=== PATIENT | female | born 1975 ===

== ENCOUNTER 2021-04-28 15:19 | Outpatient (REF) | payer OTHER, SELFPAY ==
--- NOTE | ~2021-04-28 | MM_ITS ---
EXAMINATION: MM SCREENING DIGITAL BREAST TOMOSYNTHESIS, BILATERAL CLINICAL INFORMATION: Screening. Asymptomatic. The lifetime risk of breast cancer based on the Tyrer-Cuzick Model is 11%. COMPARISON: Mammography: 08/31/2019, 08/24/2018 TECHNIQUE: Digital breast tomosynthesis is performed in both the craniocaudal and mediolateral oblique views along with computer-aided detection (CAD). Synthesized 2D images are generated from the tomosynthesis. Additional exaggerated left CC view is provided. FINDINGS: The breasts are heterogeneously dense, which may obscure small masses (ACR BI-RADS breast composition Category c). Breast tissue composition borders on extremely dense. Parenchymal pattern is similar to prior studies. There is no architectural abnormality or developing density. The axilla and skin contours are unremarkable. MM/MM tomosynthesis screening BI IMPRESSION: No mammographic evidence of malignancy. ASSESSMENT: BI-RADS 1: Negative RECOMMENDATION: Routine annual mammography screening. This patient's information was entered into a reminder system with a target due date for their next mammogram.
== END 2021-04-28 15:20 | disposition home or self-care (01) ==
LOC: HO.MAMMO 15:19
PROVIDERS: Visit Provider Internal Medicine
DX: Z12.31 Encounter for screening mammogram for malignant neoplasm of breast (principal)
CPT/HCPCS: 77063; 77067

== ENCOUNTER 2021-10-15 08:53 | Outpatient (REF) | payer OTHER, SELFPAY | END 2021-10-15 08:54 | disposition home or self-care (01) | LOC: HO.LAB 08:53 | PROVIDERS: Visit Provider Internal Medicine | DX: Z13.89 Encounter for screening for other disorder (principal) ==

== ENCOUNTER 2022-12-02 12:37 | Outpatient (REF) | payer OTHER, SELFPAY ==
--- NOTE | ~2022-12-02 | MM_ITS ---
EXAMINATION: MM SCREENING DIGITAL BREAST TOMOSYNTHESIS, BILATERAL CLINICAL INFORMATION: Screening. Asymptomatic. The lifetime risk of breast cancer based on the Tyrer-Cuzick Model is 10%. COMPARISON: Mammography: 04/28/2021, 08/31/2019, 08/24/2018 TECHNIQUE: Digital breast tomosynthesis is performed in both the craniocaudal and mediolateral oblique views along with computer-aided detection (CAD). Synthesized 2D images are generated from the tomosynthesis. FINDINGS: The breasts are heterogeneously dense, which may obscure small masses (ACR BI-RADS breast composition Category c). There are no significant masses, abnormal calcifications, or other abnormalities. No architectural abnormality or developing density or significant change from prior studies. The axilla and skin contours are unremarkable. MM/MM tomosynthesis screening BI IMPRESSION: No mammographic evidence of malignancy. ASSESSMENT: BI-RADS 1: Negative RECOMMENDATION: Routine annual mammography screening. This patient's information was entered into a reminder system with a target due date for their next mammogram.
== END 2022-12-02 12:38 | disposition home or self-care (01) ==
LOC: HO.MAMMO 12:37
PROVIDERS: PCP Internal Medicine; Visit Provider Internal Medicine
DX: Z12.31 Encounter for screening mammogram for malignant neoplasm of breast (principal)
CPT/HCPCS: 77063; 77067

== ENCOUNTER 2022-12-04 09:46 | Outpatient (REF) | payer OTHER, SELFPAY ==
[2022-12-04 09:58] LABS: MANUAL DIFF FLAG NO
[2022-12-04 10:08] LABS: Basophils Percent Auto 0.5 % (0-2); Eosinophils Absolute Auto 0.1 X10*3/uL (0.0-0.4); Eosinophils Percent Auto 2.8 % (0-4); Hematocrit 38.5 % (37.0-47.0); Hemoglobin 12.3 g/dl (12.0-16.0); Imm Gran Abs Auto 0.01 X10*3/uL (0.00-0.03); Imm Gran Pct Auto 0.2 % (0.0-0.4); Lymphocytes Absolute Auto 1.5 X10*3/uL (1.2-4.9); Lymphocytes Percent Auto 35.4 % (20-40); Mean Corpuscular HGB Conc 31.9 g/dl (31.0-35.0); Mean Corpuscular Hemoglobin 24.8 pg (27.0-33.0); Mean Corpuscular Volume 77.8 fL (80.0-98.0); Mean Platelet Volume 10.3 fL (9.4-12.3); Monocytes Absolute Auto 0.4 X10*3/uL (0.1-1.2); Monocytes Percent Auto 9.4 % (2-11); Neutrophils Absolute Auto 2.3 x10*3/uL (2.0-8.3); Neutrophils Percent Auto 51.7 % (45-73); Platelet Count 204 X10*3/uL (160-400); Red Blood Count 4.95 X10*6/uL (4.20-5.50); White Blood Count 4.4 X10*3/uL (4.8-10.8)
[2022-12-04 10:29] LABS: Alanine Aminotransferase 29 U/L (0-31); Albumin Level 4.2 g/dL (3.5-5.0); Alkaline Phosphatase 81 U/L (39-117); Anion Gap 12 (12-20); Aspartate Amino Transferase 25 U/L (5-31); Bilirubin Total 1.2 mg/dL (0.0-1.0); Blood Urea Nitrogen 9 mg/dL (9-16); Calcium 9.3 mg/dL (8.4-10.2); Carbon Dioxide 25 mmol/L (22-29); Chloride 105 mmol/L (96-108); Cholesterol 139 mg/dL; Estimated Glomerular Filt Rate > 60; Glucose Random 92 mg/dL (60-115); HDL Cholesterol 39 mg/dL; LDL Cholesterol Calculated 92 mg/dl; Potassium 4.2 mmol/L (3.3-5.1); Sodium 138 mmol/L (135-145); Total Protein 6.9 g/dL (6.5-8.0); Triglycerides 43 mg/dL
== END 2022-12-04 09:47 | disposition home or self-care (01) ==
LOC: HO.LAB 09:46
PROVIDERS: PCP Internal Medicine; Visit Provider Internal Medicine
DX: Z00.00 Encounter for general adult medical examination without abnormal findings (principal); Z13.31 Encounter for screening for depression
CPT/HCPCS: 36415; 80053; 80061; 85025

== ENCOUNTER 2024-02-07 07:29 | Outpatient (REF) | payer OTHER, SELFPAY | END 2024-02-07 07:30 | disposition home or self-care (01) | LOC: HO.MAMMO 07:29 | PROVIDERS: PCP Internal Medicine; Visit Provider Internal Medicine | DX: Z12.31 Encounter for screening mammogram for malignant neoplasm of breast (principal) | CPT/HCPCS: 77063; 77067 ==

== ENCOUNTER → 2024-02-07 07:45 | Outpatient (BNV) | payer OTHER, SELFPAY | PROVIDERS: PCP Internal Medicine; Visit Provider Radiology Diagnostic Radiology | DX: Z12.31 Encounter for screening mammogram for malignant neoplasm of breast (principal) | CPT/HCPCS: 77063; 77067 ==

== ENCOUNTER 2024-02-20 09:13 | Outpatient (REF) | payer OTHER, SELFPAY ==
[2024-02-20 09:25] LABS: MANUAL DIFF FLAG NO
[2024-02-20 09:51] LABS: Basophils Percent Auto 0.5 % (0-2); Eosinophils Absolute Auto 0.1 X10*3/uL (0.0-0.4); Eosinophils Percent Auto 1.7 % (0-4); Hematocrit 36.2 % (37.0-47.0); Hemoglobin 11.7 g/dl (12.0-16.0); Imm Gran Abs Auto 0.01 X10*3/uL (0.00-0.03); Imm Gran Pct Auto 0.2 % (0.0-0.4); Lymphocytes Absolute Auto 1.5 X10*3/uL (1.2-4.9); Lymphocytes Percent Auto 35.1 % (20-40); Mean Corpuscular HGB Conc 32.3 g/dl (31.0-35.0); Mean Corpuscular Hemoglobin 25.2 pg (27.0-33.0); Mean Platelet Volume 10.7 fL (9.4-12.3); Monocytes Absolute Auto 0.4 X10*3/uL (0.1-1.2); Monocytes Percent Auto 8.4 % (2-11); Neutrophils Absolute Auto 2.3 x10*3/uL (2.0-8.3); Neutrophils Percent Auto 54.1 % (45-73); Platelet Count 240 X10*3/uL (160-400); Red Blood Count 4.64 X10*6/uL (4.20-5.50); Red Cell Distribution Width 14.5 % (11.0-16.0); White Blood Count 4.2 X10*3/uL (4.8-10.8)
[2024-02-20 10:35] LABS: Alanine Aminotransferase 22 U/L (0-31); Albumin Level 4.3 g/dL (3.5-5.0); Alkaline Phosphatase 71 U/L (39-117); Anion Gap 11 (12-20); Aspartate Amino Transferase 24 U/L (5-31); Bilirubin Total 0.6 mg/dL (0.0-1.0); Blood Urea Nitrogen 8 mg/dL (9-16); Calcium 9.4 mg/dL (8.4-10.2); Carbon Dioxide 25 mmol/L (22-29); Chloride 108 mmol/L (96-108); Cholesterol 134 mg/dL (<200); Estimated Glomerular Filt Rate > 60; Glucose Random 105 mg/dL (60-115); HDL Cholesterol 46 mg/dL (>40); LDL Cholesterol Calculated 81 mg/dL (<100); Potassium 4.1 mmol/L (3.3-5.1); Sodium 140 mmol/L (135-145); Total Protein 7.2 g/dL (6.5-8.0); Triglycerides 39 mg/dL (<150)
[2024-02-20 10:51] LABS: TSH reflex Free T4 1.88 uIU/mL (0.32-4.0)
== END 2024-02-20 09:14 | disposition home or self-care (01) ==
LOC: HO.LAB 09:13
PROVIDERS: PCP Internal Medicine; Visit Provider Internal Medicine
DX: Z00.00 Encounter for general adult medical examination without abnormal findings (principal); I10 Essential (primary) hypertension; R00.0 Tachycardia, unspecified; R63.4 Abnormal weight loss
CPT/HCPCS: 36415; 80053; 80061; 84443; 85025

== ENCOUNTER 2024-03-22 08:31 | Outpatient (AMB) | payer OTHER, SELFPAY ==
--- NOTE | 2024-03-22 08:41 | A.OFFVIS_ITS ---
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 Apparently, heart rate runs high whenever she comes to doctor's offices but otherwise normal. Today, her heart rate is 138/Min but she states it is because of extreme anxiety coming to us. Apparently every time she goes to a physician her heart rate goes up but then returned back to normal. Patient herself does not have any cardiac history. She denies any symptoms like angina or shortness of breath or palpitations or in fact anything of that nature. Unlimited exercise tolerance. [facility] Family History Father No problems noted. Mother No problems noted. Social History (Updated 03/22/24 @ 08:45 by Citlali Li CMA) Household Members: Significant Other and Family Alcohol intake: never Patient Tobacco Use Status: Never used Tobacco Review of Systems Const Denies chills, Denies fatigue, Denies fever(s), Denies frequent falls, Denies weakness, Denies weight gain and Denies weight loss ENT Denies dizziness Card Denies chest pain, Denies leg edema, Denies lightheadedness, Denies palpitations, Denies dyspnea, Denies dyspnea on exertion and Denies orthopnea Resp Denies cough, Denies dyspnea and Denies dyspnea on exertion GI Denies bloating and Denies change in bowel habits Musc Denies muscle weakness, Denies numbness and Denies tingling Neuro Denies dizziness, Denies frequent falls, Denies numbness, Denies tingling and Denies weakness Endo Denies fatigue and Denies palpitations Physical Exam Vital Signs: Last Vital Signs Pulse 138 H 03/22/24 08:43 BP 130/60 03/22/24 08:43 BMI result Body Mass Index 20.5 Const General: comfortable and no acute distress Orientation/consciousness: patient oriented x3 HEENT Other: Unremarkable Head: Yes normal to inspection Neck Neck: Yes normal visual inspection Chest Chest palpation & inspection: normal inspection of the chest Resp Auscultation: clear to auscultation bilaterally Cardio Palpation: normal PMI Heart sounds: S1 normal heart sound present, S2 normal heart sound present, no gallops, no murmurs and no rubs GI Palpation (GI): Soft to palpation Back/Spine/Pelvis Other: unremarkable Skin General skin exam: no rashes or lesions noted Neuro General: patient oriented x3 Extrem General: Yes normal to inspection Psych Mental Status: mental status grossly normal Assessment & Plan Assessment & Plan (1) Sinus tachycardia: Code(s): R00.0 - Tachycardia, unspecified Category: Medical Plan In the recent EKG from primary care physician, sinus tachycardia at 01:32/Min; possible left atrial enlargement; nonspecific ST-T changes. Today the heart rate is 138/Min. Per patient, it is all from anxiety only. Explain the fact that we do need to still assess how the heart rates are at home and elsewhere. Hence recommend Holter monitor. Echocardiogram for cardiac function assessment. Discussed with significant other. Follow-up after the above. Orders: Orders ECG 7 day holter monitor Today R00.0 - Tachycardia, unspecified, R00.2 - Palpitations CA echo transthoracic complete Today R00.0 - Tachycardia, unspecified Coding Level of Care Code New Pt Level 4 (66429) Diagnoses Sinus tachycardia R00.0
[2024-03-22 08:43] VITALS: BP 130/60; PULSE 138; BMI 20.5
== END 2024-03-22 09:02 | disposition home or self-care (01) ==
PROVIDERS: PCP Internal Medicine; Visit Provider Internal Medicine
DX: R00.0 Tachycardia, unspecified (principal)
CPT/HCPCS: 99204

== ENCOUNTER → 2024-03-22 08:31 | Outpatient (BNVA) | payer OTHER, SELFPAY | PROVIDERS: PCP Internal Medicine; Visit Provider Internal Medicine | DX: R00.0 Tachycardia, unspecified (principal) | CPT/HCPCS: 99202 ==

== ENCOUNTER → 2024-04-13 07:53 | Outpatient (REF) | payer OTHER, SELFPAY ==
--- NOTE | 2024-04-13 07:55 | CA_ITS ---
Transthoracic Echocardiogram Patient (Last, First, Middle): Carolin Sierra, Gender: Female Date of : 1975 Age: 48 Procedure Date: 04/13/2024 Procedure Type: Transthoracic Echocardiogram Location: OP Height: 162.56 cm Weight: 53.98 kg BSA: 1.57 m2 Heart Rate: 134 bpm BP: 138 / 70 mmHg Grants Director: POLLY Referring MD: Myles March MD [employer] Supervisor: Patrick Chun MD Symptoms: R00.0 - Tachycardia, unspecified Study Quality: Adequate ECG Rhythm: sinus Tachycardia Conclusions: - Essentially normal study Findings Left Ventricle Normal left ventricular cavity size. There is normal left ventricular wall thickness. The left ventricular systolic function is hyperdynamic. The visually estimated ejection fraction is >70%. Diastolic function is normal for age. Peak GLS is -21.8%, within normal limits Right Ventricle Normal right ventricular cavity size and systolic function. Atria Both atria are normal in size. There is no evidence of interatrial shunt. Aortic Valve Normal aortic valve structure and function. There is no aortic valve stenosis. There is no aortic valve regurgitation. Mitral Valve Normal mitral valve structure and function. There is trace mitral valve regurgitation. There is no mitral valve stenosis. Pulmonic Valve The pulmonic valve is likely normal. There is trace pulmonic valve regurgitation. Tricuspid Valve Normal tricuspid valve structure. Tricuspid regurgitation envelope is inadequate for calculation of right ventricular systolic pressure. Normal right atrial pressure. Great Vessels All visible segments of the aorta are normal in size. The pulmonary artery was not well visualized. Venous The inferior vena cava is normal in size and collapses greater than 50% with inspiration. Pericardium/Pleural There is no evidence of pericardial effusion. Prior Study Comparison No prior study available for comparison. Measurements 2D Linear Measurements IVSd: 0.63 0.6-0.9/0.6-1.0 cm LVIDd: 4.45 3.9-5.3/4.2-5.9 cm LVIDd Index: 2.83 2.4-3.2/2.2-3.1 cm/m2 LVIDs: 2.41 2.0-3.6 cm LVPWd: 0.67 0.7-1.1 cm LA Diam: 2.90 2.7-3.8/3.0-4.0 cm LAIDs Index: 1.85 1.5-2.3 cm/m2 LV Mass: 105.86 67-162/88-224 g LV Mass Index: 67.43 43-95/49-115 g/m2 LVOT Diam: 1.80 3.0+(-)1.3 cm 2D Systolic Function EF 4C: 77.10 >55% EF 2C: 74.90 >55% EF BiP: 75.20 >55% Mitral Valve MV Pk E: 1.01 MV PK A: 0.95 MV Decel Time: 96.00 E/A: 1.10 E'Lateral: 14.10 E'Medial: 11.90 E/E' Med: 8.50 E/E' Lat: 7.20 PHT: 28.00 MVA PHT: 7.86 Decel Shelby: 10.82 Aortic Valve AoV Pk Edis: 1.42 AoV Pk Grad: 8.00 JONATHAN: 2.82 LVOT LVOT Pk Edis: 1.51 LVOT Mn Edis: 0.99 LVOT VTI: 0.25 LVOT Pk Grad: 9.00 LVOT Mn Grad: 5.00 LVOT Diam: 1.80 LVOT Area: 2.54 Diastolic Function MV Pk E: 1.01 MV Pk A: 0.95 E/A: 1.10 E'Medial: 11.90 E/E' Med: 8.50 E' Laterial: 14.10 E/E' Lat: 7.20 Right Ventricle TAPSE (mm): 27.90 TVS' Edis: 18.30 Tricuspid Valve RA Press: 3.00 Great Vessels Aorta Sinus of Valsalva: 3.30 2.0-3.5 cm Ao Asc: 2.70 2.1-3.4 cm Pulmonary Valve PV Pk Edis: 1.24 Peak PV Grad: 6.00 Updated in Other Vendor System with Status of Final Patrick Chun MD electronically signed on 04/16/2024 12:21:40 PM with status of Final
--- NOTE | 2024-04-13 07:55 | HM_ITS ---
* Total monitoring time 7 days. * Underlying rhythm is sinus with an average rate of 86/Min. * Rare supraventricular ectopy. * No sustained arrhythmias. * No significant pauses or AV blocks. * Patient marker used once in association with sinus tachycardia. * No diary events. MTDD
== END ==
LOC: HO.CARD 07:53
PROVIDERS: PCP Internal Medicine; Visit Provider Internal Medicine
DX: R00.2 Palpitations (principal); R00.0 Tachycardia, unspecified
CPT/HCPCS: 93242; 93306; 93356

== ENCOUNTER → 2024-04-13 07:55 | Outpatient (BNV) | payer OTHER, SELFPAY | PROVIDERS: PCP Internal Medicine; Visit Provider Internal Medicine Cardiovascular Disease | DX: R00.0 Tachycardia, unspecified (principal) | CPT/HCPCS: 93244; 93306; 93356 ==

== ENCOUNTER 2024-07-02 08:07 | Outpatient (AMB) | payer OTHER, SELFPAY ==
--- NOTE | 2024-07-02 08:20 | A.OFFVIS_ITS ---
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 Recently seen in consultation regarding tachycardia. Patient has extreme degrees of anxiety when she comes to doctor's offices and hence a pulse rate spikes up. Last time, when she was here, heart rate is 138/Min. Again, today she is very anxious and heart rate is high. However, when she is home she states that heart rates only the 80s and 90s and never over 100/Min. She has got no cardiac history whatsoever. Otherwise, unlimited exercise tolerance and she is extremely active with absolutely no limitations. No angina or in fact any cardiac symptoms. [facility] Family History Father No problems noted. Mother No problems noted. Social History Household Members: Significant Other and Family Alcohol intake: never Patient Tobacco Use Status: Never used Tobacco Review of Systems Const Denies chills, Denies fatigue, Denies fever(s), Denies weight gain and Denies weight loss ENT Denies dizziness Card Denies chest pain, Denies leg edema, Denies lightheadedness, Denies palpitations, Denies dyspnea on exertion, Denies orthopnea and Denies other Resp Denies cough and Denies dyspnea on exertion GI Denies hematochezia and Denies change in stool character Musc Denies abnormal gait, Denies muscle weakness, Denies numbness, Denies radiating pain into limb and Denies tingling Neuro Denies abnormal gait, Denies dizziness, Denies numbness and Denies tingling Endo Denies fatigue and Denies palpitations Physical Exam Vital Signs: Last Vital Signs Pulse 147 H 07/02/24 08:22 BP 130/68 07/02/24 08:22 BMI result Body Mass Index 20.1 Const General: comfortable and no acute distress Orientation/consciousness: patient oriented x3 HEENT Other: Unremarkable Head: Yes normal to inspection Neck Neck: Yes normal visual inspection Chest Chest palpation & inspection: normal inspection of the chest Resp Auscultation: clear to auscultation bilaterally Cardio Palpation: normal PMI Heart sounds: S1 normal heart sound present, S2 normal heart sound present, no gallops, no murmurs and no rubs GI Palpation (GI): Soft to palpation Back/Spine/Pelvis Other: unremarkable Skin General skin exam: no rashes or lesions noted Neuro General: patient oriented x3 Extrem General: Yes normal to inspection Psych Mental Status: mental status grossly normal Office Procedures EKG Details: EKG with sinus tachycardia at 01:47/Min; nonspecific ST-T changes; [place]. [id number], Complete Assessment & Plan Assessment & Plan (1) Sinus tachycardia: Code(s): R00.0 - Tachycardia, unspecified Category: Medical Plan Cardiac studies reviewed. EKGs shows sinus tachycardia. In the echocardiogram, hyperdynamic LVEF. Normal peak global longitudinal strain. Otherwise unremarkable. In the Holter monitor, underlying rhythm is sinus with an average rate of 86/Min. About 16% of the time, rate > 100/Min. Overall, it seems she gets severe tachycardia coming to doctor's office but otherwise generally well controlled. We discussed about using beta-blockers as necessary but she would rather avoid any medications. In this instance, mainly reassurance and stress relief measures. If any concerning cardiac symptoms, advised him to contact us immediately. They understand. Discussed with significant other. Coding Level of Care Code Est Pt Level 3 (90815) Diagnoses Sinus tachycardia R00.0 CPT Codes EKG - CPT: 24882-[id number], Complete ([id number])
[2024-07-02 08:22] VITALS: BP 130/68; PULSE 147; BMI 20.1
== END 2024-07-02 09:10 | disposition home or self-care (01) ==
PROVIDERS: PCP Internal Medicine; Visit Provider Internal Medicine
DX: R00.0 Tachycardia, unspecified (principal)
CPT/HCPCS: 93010; 99213

== ENCOUNTER → 2024-07-02 08:07 | Outpatient (BNVA) | payer OTHER, SELFPAY | PROVIDERS: PCP Internal Medicine; Visit Provider Internal Medicine | DX: R00.0 Tachycardia, unspecified (principal); F41.9 Anxiety disorder, unspecified | CPT/HCPCS: 93005; 99212 ==

== ENCOUNTER 2025-02-12 07:20 | Outpatient (REF) | payer OTHER, SELFPAY ==
--- NOTE | ~2025-02-12 | MM_ITS ---
EXAMINATION: MM SCREENING DIGITAL BREAST TOMOSYNTHESIS, BILATERAL CLINICAL INFORMATION: Screening. Asymptomatic. COMPARISON: Mammography: Comparison is made with available priors TECHNIQUE: Digital breast mammography with tomosynthesis is performed in both the craniocaudal and mediolateral oblique views along with computer-aided detection (CAD). FINDINGS: The breasts are heterogeneously dense, which may obscure small masses (ACR BI-RADS breast composition Category c). There are no significant masses, abnormal calcifications, or other abnormalities. MM/MM tomosynthesis screening BI IMPRESSION: No mammographic evidence of malignancy. ASSESSMENT: BI-RADS BI-RADS 1 - Negative RECOMMENDATION: Routine annual mammography screening. 1 year F/U This examination should not preclude the clinical evaluation of a suspicious palpable abnormality. This patient's information was entered into a reminder system with a target due date for their next mammogram. Electronically signed by: Viv Fry DO 02/17/2025 08:03 PM EDBhupinder
[2025-02-12 08:01] LABS: MANUAL DIFF FLAG NO
[2025-02-12 08:31] LABS: Basophils Percent Auto 0.8 % (0-2); Eosinophils Absolute Auto 0.1 X10*3/uL (0.0-0.4); Eosinophils Percent Auto 3.2 % (0-4); Hematocrit 37.5 % (37.0-47.0); Hemoglobin 11.7 g/dl (12.0-16.0); Imm Gran Abs Auto 0.01 X10*3/uL (0.00-0.03); Imm Gran Pct Auto 0.3 % (0.0-0.4); Lymphocytes Absolute Auto 1.4 X10*3/uL (1.2-4.9); Lymphocytes Percent Auto 37.6 % (20-40); Mean Corpuscular HGB Conc 31.2 g/dl (31.0-35.0); Mean Corpuscular Hemoglobin 24.9 pg (27.0-33.0); Mean Corpuscular Volume 79.8 fL (80.0-98.0); Mean Platelet Volume 10.5 fL (9.4-12.3); Monocytes Absolute Auto 0.3 X10*3/uL (0.1-1.2); Monocytes Percent Auto 8.9 % (2-11); Neutrophils Absolute Auto 1.9 x10*3/uL (2.0-8.3); Neutrophils Percent Auto 49.2 % (45-73); Platelet Count 220 X10*3/uL (160-400); Red Cell Distribution Width 14.6 % (11.0-16.0); White Blood Count 3.8 X10*3/uL (4.8-10.8)
[2025-02-12 09:30] LABS: Ferritin 13 ng/mL (10-250)
[2025-02-12 09:37] LABS: Vitamin B12 > 2000 pg/mL (200-900)
== END 2025-02-12 07:21 | disposition home or self-care (01) ==
LOC: HO.MAMMO 07:20
PROVIDERS: PCP Internal Medicine; Visit Provider Internal Medicine
DX: Z12.31 Encounter for screening mammogram for malignant neoplasm of breast (principal); R00.0 Tachycardia, unspecified; D50.8 Other iron deficiency anemias; J30.89 Other allergic rhinitis; K14.4 Atrophy of tongue papillae; K21.9 Gastro-esophageal reflux disease without esophagitis
CPT/HCPCS: 36415; 77063; 77067; 82607; 82728; 85025

== ENCOUNTER → 2025-02-12 08:00 | Outpatient (BNV) | payer OTHER, SELFPAY | PROVIDERS: PCP Internal Medicine; Visit Provider Internal Medicine | DX: Z12.31 Encounter for screening mammogram for malignant neoplasm of breast (principal) | CPT/HCPCS: 77063; 77067 ==